=== PATIENT | female | born 1975 | race American Indian/Alaskan Native ===

== ENCOUNTER 2020-10-19 09:29 | Outpatient (CLI) | payer OTHER ==
--- NOTE | 2020-10-19 12:03 | Magnetic Resonance Report ---
MR pelvis wo/w con INDICATION / CLINICAL INFORMATION: Uterine fibroids. TECHNIQUE: Multiplanar, multisequence MR images were obtained. Imaging was performed pre and post gadolinium. CONTRAST: Clariscan 17 mL IV injection. COMPARISON: None available. FINDINGS: Multiple uterine fibroids are present in the measure predominantly less than 1 cm in size. The larges t fibroid is anteriorly located just to the left of midline at the body measuring 2 cm. A second slig htly larger fibroid is seen at the fundus measuring 1.7 cm. No intracavitary fibroids are seen. The right ovary contains a 1.7 cm hemorrhagic lesion. The left ovary contains a 4.1 cm cyst. Mild flu id is seen in both adnexa extending into the cul-de-sac. Negative for pelvic mass or localized fluid collection. IMPRESSION: 1. Multiple uterine fibroids which are predominantly small and size. None have an intracavitary locat ion. 2. 4.1 cm left ovarian cyst. 3. Probable small hemorrhagic cyst right ovary. 4. Mild pelvic free fluid. Signer Name: Arvin Mariscal MD Signed: 10/19/2020 11:59 AM Workstation Name: [id number]
== END 2020-10-19 09:30 | disposition home or self-care (01) ==
LOC: MRI 09:29
PROVIDERS: ATTEND Surgery Vascular Surgery
DX: D25.9 Leiomyoma of uterus, unspecified (principal); D21.9 Benign neoplasm of connective and other soft tissue, unspecified; N83.292 Other ovarian cyst, left side
CPT/HCPCS: 72197; A9575